=== PATIENT | female | born 1940 | race Caucasian/White ===

== ENCOUNTER 2025-05-15 16:55 | Inpatient (IN) | payer MEDICARE ==
[~2025-05-15] VITALS: Ht 154.9 cm; Wt 47.6 kg
[2025-05-15] MEDS ORDERED: ACETAMINOPHEN ES 500 MG TABLET ONE (17:47)
[2025-05-15] MEDS: ACETAMINOPHEN ES 500 MG TABLET PO ONE (17:51)
[2025-05-15 18:07] LABS: PLATELET COUNT (AUTO) 219 K/uL (150-450); RED BLOOD CELL COUNT(AUTO) 4.34 MIL/uL (4.0-5.2); RED CELL DISTRIBUTION WIDTH 14.1 % (11.5-15.0); WHITE BLOOD COUNT (AUTO) 7.3 K/uL (4.3-11.0)
[2025-05-15 18:18] LABS: CALCIUM, SERUM 9.3 mg/dL (8.5-10.1); CREATININE 1.0 mg/dL (0.6-1.3); SODIUM SERUM 140 mmol/L (136-145); UREA NITROGEN, BLOOD 18 mg/dL (7-18)
[2025-05-15 18:32] LABS: ASPARTATE AMINOTRANSFERASE 20 U/L (15-37); NT-PRO BNP 280 pg/mL (0-125); TOTAL PROTEIN, SERUM 7.5 g/dL (6.4-8.2)
[2025-05-15 19:25] VITALS: O2SAT 97
[2025-05-15] MEDS ORDERED: ONDANSETRON HCL/PF 4 MG/2 ML VIAL IVP PRN (20:30)
[2025-05-15] MEDS ORDERED: ZOLPIDEM TARTRATE 5 MG TABLET PO PRN (20:30)
[2025-05-15] MEDS ORDERED: MAG HYDROX/AL HYDROX/SIMETH 30 ML UDC PO PRN (20:30)
[2025-05-15] MEDS ORDERED: MAGNESIUM HYDROXIDE 30 ML UDC PO PRN (20:30)
[2025-05-15] MEDS ORDERED: Z GUARD REMEDY 4 OZ OINT TP PRN (20:30)
[2025-05-15 21:12] VITALS: BP 115/82; TEMP 97.7; O2SAT 96
[2025-05-15 22:00] VITALS: BP_SYST 135; BP_SYST 146; BP_SYST 149; BP_DIAS 70; BP_DIAS 76; BP_DIAS 82
[2025-05-15] MEDS: IV NS 0.9% 1,000 ML IV PRN (22:18)
[2025-05-15] MEDS ORDERED: ESCI10TA PO (23:58)
[2025-05-15] MEDS ORDERED: LEVO100T PO (23:58)
[2025-05-15] MEDS ORDERED: DIAZ2TAB PO (23:58)
[2025-05-15] MEDS ORDERED: RISE150T PO (23:58)
[2025-05-15] MEDS ORDERED: TRAM50TA2 PO (23:58)
[2025-05-15] MEDS ORDERED: CYCL5TAB PO (23:58)
[2025-05-16] MEDS: ACETAMINOPHEN 325 MG TABLET PO PRN (05:15)
[2025-05-16] MEDS: LEVOTHYROXINE SODIUM 100 MCG TABLET PO SCH (06:03)
[2025-05-16 06:49] LABS: PLATELET COUNT (AUTO) 211 K/uL (150-450); RED BLOOD CELL COUNT(AUTO) 4.17 MIL/uL (4.0-5.2); RED CELL DISTRIBUTION WIDTH 14.0 % (11.5-15.0); WHITE BLOOD COUNT (AUTO) 6.2 K/uL (4.3-11.0)
[2025-05-16 07:23] LABS: ASPARTATE AMINOTRANSFERASE 22.0 U/L (15-37); CALCIUM, SERUM 8.5 mg/dL (8.5-10.1); CREATININE 0.8 mg/dL (0.6-1.3); PHOSPHORUS 2.8 mg/dL (2.5-4.9); SODIUM SERUM 143.0 mmol/L (136-145); TOTAL PROTEIN, SERUM 6.7 g/dL (6.4-8.2); UREA NITROGEN, BLOOD 15.0 mg/dL (7-18)
[2025-05-16 08:00] VITALS: BP 140/80; TEMP 97.9; O2SAT 100
[2025-05-16] MEDS: PANTOPRAZOLE 40 MG VIAL IV SCH (08:23)
[2025-05-16] MEDS: ESCITALOPRAM OXALATE (10 MG) 10 MG TABLET PO SCH (08:23)
[2025-05-16] MEDS: ENOXAPARIN SODIUM 30 MG/0.3 ML DISP.SYRIN SQ SCH (08:24)
[2025-05-16] MEDS ORDERED: RISEDRONATE SODIUM PO SCH (09:00)
[2025-05-16 10:00] VITALS: BP_SYST 132; BP_SYST 140; BP_SYST 168; BP_DIAS 79; BP_DIAS 88; BP_DIAS 90
[2025-05-16] MEDS: ACETAMINOPHEN 325 MG TABLET PO SCH (11:21)
[2025-05-16] MEDS: IBUPROFEN 400 MG TABLET PO SCH (11:22)
[2025-05-16 13:10] LABS: ADD URINE CULTURE NO; APPEARANCE,URINE CLEAR (CLEAR); BLOOD, URINE NEGATIVE Ery/uL (NEGATIVE); LEUKOCYTE ESTERASE ,URINE NEGATIVE (NEGATIVE); NITRITE, URINE NEGATIVE (NEGATIVE); SQUAMOUS EPITHELIAL CELL,UR Few /HPF (None Seen); UGLUCOSE NEGATIVE (NEGATIVE)
[2025-05-16 15:00] VITALS: BP 125/76; TEMP 97.9; O2SAT 97
[2025-05-16] MEDS: oxyCODONE IR immediate release 5 MG TABLET PO PRN (16:50)
[2025-05-16 20:00] VITALS: BP 132/78; TEMP 98.1; O2SAT 97
[2025-05-17 08:00] VITALS: BP 143/74; TEMP 98.1; O2SAT 99
[2025-05-17] MEDS: ENOXAPARIN SODIUM 40 MG/0.4 ML DISP.SYRIN SQ SCH (08:32)
[2025-05-17 10:00] VITALS: BP_SYST 117; BP_SYST 128; BP_SYST 136; BP_DIAS 70; BP_DIAS 77; BP_DIAS 84
[2025-05-17 10:47] LABS: PLATELET COUNT (AUTO) 245 K/uL (150-450); RED BLOOD CELL COUNT(AUTO) 4.43 MIL/uL (4.0-5.2); RED CELL DISTRIBUTION WIDTH 14.4 % (11.5-15.0); WHITE BLOOD COUNT (AUTO) 7.2 K/uL (4.3-11.0)
[2025-05-17 11:33] LABS: CALCIUM, SERUM 8.7 mg/dL (8.5-10.1); CREATININE 1.0 mg/dL (0.6-1.3); PHOSPHORUS 2.8 mg/dL (2.5-4.9); SODIUM SERUM 141.0 mmol/L (136-145); UREA NITROGEN, BLOOD 11.0 mg/dL (7-18)
[2025-05-17] MEDS: ENSURE ENLIVE 237 ML LIQUID (VANILLA) PO SCH (12:43)
[2025-05-17 16:00] VITALS: BP 134/73; TEMP 97.9; O2SAT 99
[2025-05-17 20:00] VITALS: BP 154/74; TEMP 97.5; O2SAT 96
[2025-05-18 06:22] LABS: PLATELET COUNT (AUTO) 276 K/uL (150-450); RED BLOOD CELL COUNT(AUTO) 4.61 MIL/uL (4.0-5.2); RED CELL DISTRIBUTION WIDTH 14.0 % (11.5-15.0); WHITE BLOOD COUNT (AUTO) 5.1 K/uL (4.3-11.0)
[2025-05-18 06:39] LABS: CALCIUM, SERUM 9.4 mg/dL (8.5-10.1); CREATININE 1.0 mg/dL (0.6-1.3); PHOSPHORUS 3.8 mg/dL (2.5-4.9); SODIUM SERUM 147.0 mmol/L (136-145); UREA NITROGEN, BLOOD 12.0 mg/dL (7-18)
[2025-05-18 08:00] VITALS: BP 146/80; TEMP 97.7; O2SAT 97
[2025-05-18] MEDS: PANTOPRAZOLE 40 MG/PACK PACK PO SCH (08:05)
[2025-05-18] MEDS: IV 1/2NS 1000 ML 1,000 ML IV PRN (11:28)
[2025-05-18 16:00] VITALS: BP 132/72; TEMP 97.7; O2SAT 96
[2025-05-18 20:00] VITALS: BP 109/56; TEMP 98.1; O2SAT 94
[2025-05-19 06:37] LABS: PLATELET COUNT (AUTO) 267 K/uL (150-450); RED BLOOD CELL COUNT(AUTO) 4.47 MIL/uL (4.0-5.2); RED CELL DISTRIBUTION WIDTH 14.3 % (11.5-15.0); WHITE BLOOD COUNT (AUTO) 6.1 K/uL (4.3-11.0)
[2025-05-19 07:23] LABS: CALCIUM, SERUM 9.1 mg/dL (8.5-10.1); CREATININE 1.0 mg/dL (0.6-1.3); PHOSPHORUS 3.6 mg/dL (2.5-4.9); SODIUM SERUM 145.0 mmol/L (136-145); UREA NITROGEN, BLOOD 20.0 mg/dL (7-18)
[2025-05-19 08:00] VITALS: BP 157/78; TEMP 98.1; O2SAT 94
[2025-05-19 17:06] VITALS: TEMP 98.1
== END 2025-05-19 18:13 | DRG 640 ==
LOC: ER 17:03 → MED 20:49
PROVIDERS: ADMIT Nurse Practitioner Acute Care; ATTEND Nurse Practitioner Acute Care
DX: E86.0 Dehydration (principal); E43 Unspecified severe protein-calorie malnutrition; S22.42XA Multiple fractures of ribs, left side, initial encounter for closed fracture; R64 Cachexia; Z68.1 Body mass index [BMI] 19.9 or less, adult; F33.2 Major depressive disorder, recurrent severe without psychotic features; R62.7 Adult failure to thrive; R29.6 Repeated falls; W01.0XXA Fall on same level from slipping, tripping and stumbling without subsequent striking against object, initial encounter; E03.9 Hypothyroidism, unspecified; E88.09 Other disorders of plasma-protein metabolism, not elsewhere classified; F17.210 Nicotine dependence, cigarettes, uncomplicated; Z71.6 Tobacco abuse counseling; M19.90 Unspecified osteoarthritis, unspecified site; R53.1 Weakness; Z20.822 Contact with and (suspected) exposure to COVID-19; M81.0 Age-related osteoporosis without current pathological fracture; F41.1 Generalized anxiety disorder; Y93.9 Activity, unspecified; Y92.009 Unspecified place in unspecified non-institutional (private) residence as the place of occurrence of the external cause
CPT/HCPCS: 36415; 70450-TC; 71045-TC; 72125-TC; 80048-TC; 80053-TC; 80076-TC; 81001; 82962-TC; 83735-TC; 83880; 84100-TC; 84439-TC; 84443-TC; 84484-TC; 85025-TC; 87086-TC; 92526; 92611; 97110-TC; 97112-TC; 97116-TC; 97530-TC; A4223; G0378; J1650; J2470; J3490; J7030